=== PATIENT | female | born 1995 | race Two or more races ===

== ENCOUNTER 2017-08-16 13:06 | Emergency (ER) | payer MEDICAID ==
[~2017-08-16] VITALS: Ht 160 cm; Wt 69.4 kg
[2017-08-16 13:09] VITALS: Ht 160 cm; Wt 69.4 kg
[2017-08-16 15:14] LABS: BASOPHIL % 0.3 % (0-2); PLATELET COUNT 364 x10^3mcL (130-400); RED CELL DISTRIBUTION WIDTH 13.3 % (11.5-14.5)
[2017-08-16 15:21] LABS: CALCIUM 9.2 mg/dL (8.5-10.1); CARBON DIOXIDE 23.8 mmol/L (21-32); CHLORIDE SERUM 102 mmol/L (98-107); CREATININE SERUM 0.7 mg/dL (0.6-1.0); GFR1 > 60 mL/min; GLUCOSE SERUM 101 mg/dL (74-106); POTASSIUM SERUM 3.1 mmol/L (3.5-5.1); SODIUM SERUM 136 mmol/L (136-145)
[2017-08-16 15:28] LABS: ALBUMIN 3.9 g/dL (3.4-5.0); ALKALINE PHOSPHATASE 64 U/L (46-116); ALT/SGPT 26 U/L (14-59); AST/SGOT 16 U/L (15-37); BILIRUBIN TOTAL 0.5 mg/dL (0.20-1.00); CHOLESTEROL 114 mg/dL (<200); HDL CHOLESTEROL 33 mg/dL (40-60); PHOSPHOROUS 1.3 mg/dL (2.5-4.9); TOTAL PROTEIN, SERUM 7.9 g/dL (6.4-8.2); URIC ACID 4.3 mg/dL (2.6-6.0)
[2017-08-16 15:59] VITALS: BP 113/66
== END 2017-08-16 15:59 | disposition home or self-care (01) ==
LOC: ED 13:06
PROVIDERS: Emergency Medicine
DX: R55 Syncope and collapse (principal); R42 Dizziness and giddiness; R51 Headache; R11.10 Vomiting, unspecified
CPT/HCPCS: 36415; 83880; J0780; J1885; Q0092